=== PATIENT | male | born 1955 | race Caucasian/White ===

== ENCOUNTER 2024-12-30 10:15 | Outpatient (AMB) | payer MEDICARE, OTHER, SELFPAY ==
--- NOTE | 2024-12-30 11:02 | A.OFFPC_ITS ---
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 Allergies No Known Allergies Allergy (Verified 12/30/24 11:02) Medication List - Last Reconciled 01/01/25 by Mariam Hinds MD bupropion HCl SR 150 mg PO DAILY chlorthalidone 25 mg PO DAILY lisinopril 40 mg PO DAILY lorazepam 0.5 mg PO DAILY PRN sildenafil 100 mg PO DAILY PRN Tobacco use date assessed: 12/30/24 Fall risk assessment: No Falls in past year Last assessed Fall Risk: 12/30/24 Dental Screening Dental Screen Date: 12/30/24 Did you have a dental visit in the last 12 months?: Yes Did you have a dental problem in the last 6 months where you did not have access to dental care?: No Was dental information given to patient?: Patient has dentist HPI HPI Comments History of Present Illness Details 69 year old female with a past medical h istory of hypertension, LVH, hyperlipidia, ELISABETH, narcolepsy, BPH, ADD, anxiety, shoulder pain, tinnitus presenting to establish care. CV: hypertension, LVH. Sees cardiology, Dr Smith. Was following every 6 months, now following every 1 year. Stable on chlorthalidone and lisinopril ELISABETH: Lost 50 pounds and the need for CPAP Yazdanism. Traditional Faroese medicine. Has improved anxiety. Does still need lorazepam at times Colonoscopy was due 07/2024 ROS CONSTITUTIONAL: Denies weight loss, fever and chills. HEENT: Denies changes in vision and hearing. RESPIRATORY: Denies SOB and cough. CV: Denies palpitations and CP GI: Denies abdominal pain, nausea, vomiting and diarrhea. : Denies dysuria and urinary frequency. MSK: Denies new myalgia and joint pain. SKIN: Denies rash and pruritus. NEUROLOGICAL: Denies headache PSYCHIATRIC: Denies recent changes in mood. PHYSICAL EXAM: GENERAL: Alert and oriented x 3. NAD EYES: EOMI. Anicteric. HENT: Moist mucous membranes. No scleral icterus. No cervical lymphadenopathy. LUNGS: Clear to auscultation bilaterally. CARDIOVASCULAR: Regular rate and rhythm. No murmur. No JVD. ABDOMEN: Soft, non-tender +bs EXTREMITIES: No edema. Non-tender. SKIN: No rashes or lesions. Warm. NEUROLOGIC: No focal neurological deficits. CN II-XII grossly intact PSYCHIATRIC: Cooperative. Appropriate mood and affect [facility] Surgical History History of hernia repair Family History Father Diabetes HTN (hypertension) Brother HTN (hypertension) Social History Housing: House Alcohol intake: current Patient Tobacco Use Status: Never used Tobacco e-Cigarette/Vaping Use: Never Used Second Hand Smoke Exposure: No Current occupational status: retired Cognitive needs: No Hearing needs: Yes (hearing aids) Vision needs: Yes (glassese) Questionnaire PHQ-9 Over the last 2 weeks, how often have you been bothered by any of the following problems? 1. Little interest or pleasure in doing things: not at all 2. Feeling down, depressed, or hopeless: several days 3. Trouble falling or staying asleep, or sleeping too much: several days 4. Feeling tired or having little energy: not at all 5. Poor appetite or overeating: not at all 6. Feeling bad about yourself - or that you are a failure or have let yourself or your family down: not at all 7. Trouble concentrating on things, such as reading the newspaper or watching television: not at all 8. Moving or speaking so slowly that other people could have noticed. Or the opposite - being so fidgety or restless that you have been moving around a lot more than usual: not at all 9. Thoughts that you would be better off or of hurting yourself in some way: not at all Total score: 2 Depression Screening Interpretation: Negative Depression Screening Done: Yes 88160 - PHQ-9 Billing: Yes Source: Developed by Drs. Gatito Rice, Shawanda Dye, Blane Ayala and colleagues, with an educational ryan from [email or web address]. Thrive Questionnaire Date Thrive assessed: 12/23/24 I am a: Patient What is your living situation today?: I have a steady place to live Within the past 12 months, did the food you bought not last and you didn't have the money to get more?: Never true Within the past 12 months, did you worry whether your food would run out before you got money to buy more?: Never true Do you have trouble paying for medicines?: No Do you have trouble getting transportation to medical appointments?: No Do you have trouble paying your heating and electricity bill?: No Do you have trouble taking care of your child, family member or friend?: No Do you have trouble with day-to-day activities such as bathing, preparing meals, shopping, managing finances, etc.?: No Are you currently unemployed and looking for a job?: No Are you interested in more education?: No Please select the resources that you would like help with: None Currently or been in a relationship where the following occur: No concerns reported THRIVE Score: 0 AUDIT C Alcohol Use Questionnaire (AUDIT-C) 1. How often do you have a drink containing alcohol?: Monthly or less 2. How many drinks containing alcohol do you have on a typical day when you are drinking?: 1 or 2 3. How often do you have six or more drinks on one occasion?: Never Total Score: 1 ROGELIO-7 AMB Questionnaire ROGELIO-7 Feeling nervous, anxious, or on edge: 1 = Several days Not being able to stop or control worryin = Not at all Worrying too much about different things: 0 = Not at all Trouble relaxin = Not at all Being so restless that it is hard to sit still: 0 = Not at all Becoming easily annoyed or irritable: 0 = Not at all Feeling afraid as if something awful might happen: 0 = Not at all Total ROGELIO-7 score (0-4 normal; 5-9 mild; 10-14 moderate; 15-21 severe): 1 Source: Developed by Drs. Gatito Rice, Shawanda Dye, Blane Ayala and colleagues, with an educational ryan from [email or web address]. Physical exam (Primary Care) Vital Signs: Last Vital Signs Pulse 78 12/30/24 11:10 Resp 14 12/30/24 11:10 BP 130/82 12/30/24 11:10 Pulse Ox 98 12/30/24 11:10 Oxygen Delivery Method Room Air 12/30/24 11:10 BMI result Body Mass Index 25.5 Tobacco/Smoking Status: Tobacco use Status Tobacco use date assessed 12/30/24 12/30/24 11:13 Patient Tobacco Use Status Never used Tobacco 12/30/24 11:13 e-Cigarette/Vaping Use Never Used 12/30/24 11:13 PHQ-9: PHQ-9 Score PHQ-9: Total score 2 01/01/25 13:34 Depression Screening Interpretation: Negative Thrive Assessment: Date of Thrive Assessment Date Thrive assessed 12/23/24 12/30/24 11:13 Currently or been in a relationship where the following occur: No concerns reported Coding Level of Care Code New Pt Level 4 (13507) Complex EM visit Add On G2211 Diagnoses Primary hypertension I10 Hypertension type: primary hypertension Anxiety F41.9 Encounter to establish care Z76.89 Additional Codes PHQ-9 - 75768 - PHQ-9 Billing: Yes ([id number]) Assessment & Plan Assessment & Plan (1) Hypertension: Code(s): I10 - Essential (primary) hypertension Category: Medical Qualifiers: Hypertension type: primary hypertension Qualified Code(s): I10 - Essential (primary) hypertension Plan: Controlled on current medication (2) Anxiety: Code(s): F41.9 - Anxiety disorder, unspecified Category: Medical Plan: stable (3) Encounter to establish care: Code(s): Z76.89 - Persons encountering health services in other specified circumstances Category: Medical Plan: 69 year old to establish care. Past medical, surgical, family and social history reviewed. Orders: Orders Complete Blood Count Auto Diff 12/30/24 Z12.5 - Encounter for screening for malignant neoplasm of prostate, Z13.0 - Encounter for screening for diseases of the blood and blood-forming organs and certain disorders involving the immune mechanism, Z13.220 - Encounter for screening for lipoid disorders, Z13.228 - Encounter for screening for other metabolic disorders Lipid Panel 12/30/24 Z12.5 - Encounter for screening for malignant neoplasm of prostate, Z13.0 - Encounter for screening for diseases of the blood and blood- forming organs and certain disorders involving the immune mechanism, Z13.220 - Encounter for screening for lipoid disorders, Z13.228 - Encounter for screening for other metabolic disorders Prostate Specific Antigen 12/30/24 Z12.5 - Encounter for screening for malignant neoplasm of prostate, Z13.0 - Encounter for screening for diseases of the blood and blood-forming organs and certain disorders involving the immune mechanism, Z13.220 - Encounter for screening for lipoid disorders, Z13.228 - Encounter for screening for other metabolic disorders Comprehensive Met. Panel 12/30/24 Z12.5 - Encounter for screening for malignant neoplasm of prostate, Z13.0 - Encounter for screening for diseases of the blood and blood-forming organs and certain disorders involving the immune mechanism, Z13.220 - Encounter for screening for lipoid disorders, Z13.228 - Encounter for screening for other metabolic disorders Medications: New chlorthalidone 25 mg PO DAILY lorazepam 0.5 mg PO DAILY PRN 30 tabs 0RF anxiety sildenafil administer 30 minutes to 4 hours before activity 100 mg PO DAILY PRN 30 tabs 11RF sexual activity lisinopril 40 mg PO DAILY 90 tabs 3RF bupropion HCl SR 150 mg PO DAILY 90 tabs 3RF
[2024-12-30 11:10] VITALS: BP 130/82; PULSE 78; RESP 14; O2SAT 98; BMI 25.5
== END 2024-12-30 12:07 | disposition home or self-care (01) ==
PROVIDERS: PCP Internal Medicine; Visit Provider Internal Medicine
DX: I10 Essential (primary) hypertension (principal); F41.9 Anxiety disorder, unspecified; Z76.89 Persons encountering health services in other specified circumstances

== ENCOUNTER → 2024-12-30 10:15 | Outpatient (BNVA) | payer MEDICARE, OTHER, SELFPAY | PROVIDERS: PCP Internal Medicine; Visit Provider Internal Medicine | DX: Z76.89 Persons encountering health services in other specified circumstances (principal); I10 Essential (primary) hypertension; F41.9 Anxiety disorder, unspecified | CPT/HCPCS: 96127; 99202 ==

== ENCOUNTER 2025-07-10 10:33 | Outpatient (AMB) | payer MEDICARE, OTHER, SELFPAY ==
--- NOTE | 2025-07-10 10:44 | A.OFFVIS_ITS ---
Intake Vital Signs 07/10/25 10:58 Height 6 ft 0.64 in Weight 192 lb 4 oz BMI 25.6 BP 134/82 Blood Pressure Location Rt brachial Position Sitting Respiration 12 Pulse 74 Pulse Source Pulse Oximeter Temp 98.2 F Temp Source Oral Pulse Oximetry (%) 96 Oxygen Delivery Method Room Air Intake Visit Reasons: mawv Intake Note: Medical wellness visit. 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 Sees cardiology, Dr Smith. Was following every 6 months, now following every 1 year. On chlorthalidone 12.5, lisinopril. Has been getting leg cramps. ELISABETH: Resolved with weight loss. Spiritism. Traditional Filipino medicine. Has improved anxiety. Does still need lorazepam at times Cramping in the legs. Ski season ended started was more sedentary then started doing a lot of work on his property during the summer, cutting down trees chopping wood. Thighs and calves have been getting cramping Has tried to increase hydration which seems to help. Went to see urology. Went on 5mg daily of tadafinil. Will follow again with them in six months. Colonoscopy was due 07/2024. He did not hear to schedule from previous provider ROS CONSTITUTIONAL: Denies weight loss, fever and chills. HEENT: Denies changes in vision and hearing. RESPIRATORY: Denies SOB and cough. CV: Denies palpitations and CP GI: Denies abdominal pain, nausea, vomiting and diarrhea. : Denies dysuria and urinary frequency. MSK: Denies new myalgia and joint pain. SKIN: Denies rash and pruritus. NEUROLOGICAL: Denies headache PSYCHIATRIC: Denies recent changes in mood. PHYSICAL EXAM: GENERAL: Alert and oriented x 3. NAD EYES: EOMI. Anicteric. HENT: Moist mucous membranes. No scleral icterus. No cervical lymphadenopathy. LUNGS: Clear to auscultation bilaterally. CARDIOVASCULAR: Regular rate and rhythm. No murmur. No JVD. ABDOMEN: Soft, non-tender +bs EXTREMITIES: No edema. Non-tender. SKIN: No rashes or lesions. Warm. NEUROLOGIC: No focal neurological deficits. CN II-XII grossly intact PSYCHIATRIC: Cooperative. Appropriate mood and affect [facility] Surgical History History of hernia repair Family History Father Diabetes HTN (hypertension) Brother HTN (hypertension) Social History Housing: House Alcohol intake: current Patient Tobacco Use Status: Never used Tobacco e-Cigarette/Vaping Use: Never Used Second Hand Smoke Exposure: No Current occupational status: retired Cognitive needs: No Hearing needs: Yes (hearing aids) Vision needs: Yes (glassese) Questionnaire Medicare Wellness Checkup What [age] 65-71 What gender do you identify with?: male During the past 4 weeks, how much have you been bothered by emotional problems such as feeling anxious, depressed, irritable, sad or downhearted, and blue?: slightly During the past 4 weeks, has your physical & emotional health limited your social activities with family, friends, neighbors, or groups?: not at all During the past 4 weeks, how much bodily pain have you generally had?: no pain During the past 4 weeks, was someone available to help you if you needed & wanted help?: yes, as much as I wanted During the past 4 weeks, what was the hardest physical activity you could do for at least 2 minutes?: very heavy Can you get to places out of walking distance without help? (For eg., can you travel alone on buses, taxis or drive your car?): Yes Can you go shopping for groceries or clothes without someone's help?: Yes Can you prepare your own meals?: Yes Can you do your housework without help?: Yes Because of any health problems, do you need the help of another person with your personal care needs such as eating, bathing, dressing or getting around the house?: Yes Can you handle your own money without help?: Yes During the past 4 weeks, how would you rate your health in general?: excellent During the past 4 weeks how have things been going for you?: very well; could hardly better Are you having difficulties driving your car?: no Do you always fasten your seat belt when you are in a car?: yes, usually During past 4 weeks, have you been bothered by the following: never: Falling or dizzy when standing up, Sexual problems?, Trouble eating well?, Teeth or denture problems? and Problems using the telephone? and seldom: Tiredness or fatigue? Have you fallen 2 or more times in the past year?: No Are you afraid of falling?: No Are you a smoker?: no During the past 4 weeks, how many drinks of wine, beer, or other alcoholic beverages did you have?: 1 drink or less per week Do you exercise for about 20 minutes 3 or more times a week?: yes, all the time (goal is 6,000 steps and has been reaching it. strenuous yard work.) Have you been given information to help with the following?: yes: Keeping track of your medications? and no: Hazards in your house that might hurt you? How often do you have trouble taking medicines the way you have been told to take them?: I always take medicine as prescribed How confident are you that you can control & manage most of your health problems?: very confident What is your race?: White Mini Mental State Exam (MMSE) Orientation What is the (year) (season) (date) (day) (month)?: year (2024), season (summer), date (07/10), day (Thursday) and month (June) Where are we (state) (county) (town or city) (hospital) (floor)?: state ([place]), [facility] ([place]), town or city ([place]), hospital/clinic ([facility]) and floor (first floor ) Registration Name of 3 unrelated objects clearly and slowly, then ask patient to repeat all 3 of them. (1st repeat determines score. Make sure they can repeat all three): object 1 (ball ), object 2 (flag) and object 3 (tree) Attention & Calculation (CHOOSE ONE) Ask pt to begin with 100 & count backward by 7. Stop after 5 repeats. If pt cannot ask them to spell the word WORLD backward.: 93, 86, 79, 72 and 65 Recall Ask patient to repeat the 3 items from question #3.: object 1 (Ball), object 2 (flag) and object 3 (tree) Language Show patient a wristwatch & ask what it is. Repeat for pencil.: watch and pencil Ask the patient to repeat the phrase 'No ifs, ands, or buts' after you.: correct Ask the patient to 'take a piece of paper with their right hand' 'fold paper in half' 'place paper on floor': take paper in right hand, fold paper in half and place paper on floor Print the sentence 'CLOSE YOUR EYES' on a piece. If patient actually closes eyes then score.: followed written direction Give patient a blank piece of paper & ask to write a sentence. Score if it contains a noun & verb.: sentence contains subject and verb Ask patient to copy figure of intersecting pentagons exactly. Score if all 10 angles & 2 intersects are included.: all 10 angles present & 2 are intersected Score Score: 30 Activity of Daily Living Bathing - sponge bath, tub bath or shower: receives no assistance (gets in/out by self, if usual bathing means Dressing - getting clothes from closets & drawers, including inner/outer garments & fasteners.: gets clothes & gets completely dressed without help Toileting - going to the 'toilet room' for urine/bowel elimination & cleaning self/arranging clothes: goes to toilet room, cleans self, arranges clothes without help Transfer: moves in & out of bed and chair without help (may use support object) Continence: controls urination/bowel movements completely by self Feeding: feeds self without help Total Score: 0 Information obtained from: patient Using telephone: independent Traveling: independent Shopping: independent Preparing meals: independent Housework: independent Taking medicine: independent Managing money: independent Physical Exam Vital Signs: Last Vital Signs Temp 98.2 F 07/10/25 10:58 Pulse 74 07/10/25 10:58 Resp 12 07/10/25 10:58 BP 134/82 07/10/25 10:58 Pulse Ox 96 07/10/25 10:58 Oxygen Delivery Method Room Air 07/10/25 10:58 BMI result Body Mass Index 25.6 Assessment & Plan Assessment & Plan (1) Medicare annual wellness visit, subsequent: Code(s): Z00.00 - Encounter for general adult medical examination without abnormal findings Plan 70 year old male for MWV HRA reviewed. Care team reviewed BP controlled. Can try stopping chlorthalidone. Labs ordered anxiety controlled BPH/elevated psa-continue urology follow up Orders: Orders Complete Blood Count Auto Diff Today F41.9 - Anxiety disorder, unspecified, I10 - Essential (primary) hypertension, R25.2 - Cramp and spasm, Z13.0 - Encounter for screening for diseases of the blood and blood-forming organs and certain disorders involving the immune mechanism, Z13.228 - Encounter for screening for other metabolic disorders Comprehensive Met. Panel Today F41.9 - Anxiety disorder, unspecified, I10 - Essential (primary) hypertension, R25.2 - Cramp and spasm, Z13.0 - Encounter for screening for diseases of the blood and blood-forming organs and certain disorders involving the immune mechanism, Z13.228 - Encounter for screening for other metabolic disorders Lipid Panel Today F41.9 - Anxiety disorder, unspecified, I10 - Essential (primary) hypertension, R25.2 - Cramp and spasm, Z13.0 - Encounter for screening for diseases of the blood and blood-forming organs and certain disorders involving the immune mechanism, Z13.228 - Encounter for screening for other metabolic disorders Hemoglobin A1c Today F41.9 - Anxiety disorder, unspecified, I10 - Essential (primary) hypertension, R25.2 - Cramp and spasm, Z13.0 - Encounter for screening for diseases of the blood and blood-forming organs and certain disorders involving the immune mechanism, Z13.228 - Encounter for screening for other metabolic disorders TSH reflex Free T4 Today F41.9 - Anxiety disorder, unspecified, I10 - Essential (primary) hypertension, R25.2 - Cramp and spasm, Z13.0 - Encounter for screening for diseases of the blood and blood-forming organs and certain disorders involving the immune mechanism, Z13.228 - Encounter for screening for other metabolic disorders Magnesium Today R25.2 - Cramp and spasm Referrals Gastroenterology Referral Z12.11 - Encounter for screening for malignant neoplasm of colon Medications: New tadalafil (Cialis) administer approximately 30min before sexual activity; do not use more than 1 dose per 24hrs 5 mg PO DAILY 90 tabs 3RF Refilled bupropion HCl SR 150 mg PO DAILY 90 tabs 3RF Discontinued sildenafil administer 30 minutes to 4 hours before activity Discontinued Reason: Doctor's Order 100 mg PO DAILY PRN 30 tabs 11RF sexual activity Coding Level of Care Code Medicare Subsequent (G0439) Diagnoses Medicare annual wellness visit, subsequent Z00.00
[2025-07-10 10:58] VITALS: BP 134/82; PULSE 74; RESP 12; TEMP 36.8; O2SAT 96; BMI 25.6
--- OUTSIDE RECORDS SUMMARY | 2025-07-10 11:45 | XMS_ITS ---
Author Name [facility] Organization Unknown Care Team Organization Name Specialty Phone Email Start Date End [facility] 07/05/2025 [facility] Reina Sauceda [facility] 10/28/2023 07/04/2024 [facility] Termed, PROVIDER Primary Care 07/23/202306/16
== END 2025-07-10 11:34 | disposition home or self-care (01) ==
LOC: HO.HMCFM 10:35
PROVIDERS: PCP Internal Medicine; Visit Provider Internal Medicine
DX: Z00.00 Encounter for general adult medical examination without abnormal findings (principal)

== ENCOUNTER 2025-08-30 14:53 | Outpatient (REF) | payer MEDICARE, OTHER, SELFPAY ==
[2025-08-30 18:17] LABS: MANUAL DIFF FLAG NO
[2025-08-30 18:35] LABS: Hematocrit 43.5 % (42.0-52.0); Hemoglobin 14.2 g/dl (14.0-18.0); Imm Gran Abs Auto 0.01 X10*3/uL (0.00-0.03); Imm Gran Pct Auto 0.2 % (0.0-0.4); Lymphocytes Absolute Auto 1.1 X10*3/uL (1.2-4.9); Mean Corpuscular HGB Conc 32.6 g/dl (31.0-36.0); Mean Corpuscular Hemoglobin 29.5 pg (27.0-33.0); Mean Corpuscular Volume 90.4 fL (80.0-98.0); NRBC Abs Auto 0.000 X10*3/uL (0.0-0.012); NRBC Pct Auto 0.0 /100WBC (0.0-0.2); Platelet Count 208 X10*3/uL (160-400); Red Blood Count 4.81 X10*6/uL (4.60-5.80); White Blood Count 5.1 X10*3/uL (4.8-10.8)
[2025-08-30 18:49] LABS: Alanine Aminotransferase 24 U/L (0-40); Albumin Level 4.5 g/dL (3.5-5.0); Anion Gap 12 (12-20); Aspartate Amino Transferase 28 U/L (5-37); Blood Urea Nitrogen 19 mg/dL (9-16); Calcium 8.9 mg/dL (8.4-10.2); Carbon Dioxide 27 mmol/L (22-29); Chloride 108 mmol/L (96-108); Cholesterol 218 mg/dL (<200); Estimated Glomerular Filt Rate > 60; HDL Cholesterol 63 mg/dL (>40); Magnesium 2.3 mg/dL (1.6-2.6); Potassium 4.0 mmol/L (3.3-5.1); Sodium 143 mmol/L (135-145); Total Protein 7.0 g/dL (6.5-8.0); Triglycerides 105 mg/dL (<150)
[2025-08-30 19:19] LABS: Alkaline Phosphatase 69 U/L (39-117)
== END 2025-08-30 14:54 | disposition home or self-care (01) ==
LOC: HO.WFDLDS 14:53
PROVIDERS: Visit Provider Internal Medicine
DX: Z13.0 Encounter for screening for diseases of the blood and blood-forming organs and certain disorders involving the immune mechanism (principal); Z13.228 Encounter for screening for other metabolic disorders; I10 Essential (primary) hypertension; F41.9 Anxiety disorder, unspecified; R25.2 Cramp and spasm; Z13.1 Encounter for screening for diabetes mellitus
CPT/HCPCS: 36415; 80053; 80061; 83036; 83735; 84443; 85025